=== PATIENT | female | born 1995 | race Caucasian/White ===

== ENCOUNTER 2017-05-22 03:40 | Emergency (ER) | payer MEDICAID ==
[~2017-05-22] VITALS: Ht 152.4 cm; Wt 46.3 kg
[2017-05-22 03:44] VITALS: Ht 152.4 cm; Wt 46.3 kg
[2017-05-22 06:51] VITALS: BP 117/75
== END 2017-05-22 06:51 | disposition home or self-care (01) ==
LOC: ED 03:40
DX: B34.9 Viral infection, unspecified (principal)
CPT/HCPCS: Q0092

== ENCOUNTER 2018-02-06 08:41 | Emergency (ER) | payer BC, MEDICAID ==
[~2018-02-06] VITALS: Ht 154.9 cm; Wt 44.9 kg
[2018-02-06 08:47] VITALS: Ht 154.9 cm; Wt 44.9 kg
[2018-02-06 10:46] LABS: BASOPHIL % 0.6 % (0-2); PLATELET COUNT 232 x10^3mcL (130-400); RED CELL DISTRIBUTION WIDTH 13.5 % (11.5-14.5)
[2018-02-06 12:58] VITALS: BP 104/64
== END 2018-02-06 12:58 | disposition home or self-care (01) ==
LOC: ED 08:41
PROVIDERS: Emergency Medicine
DX: R10.30 Lower abdominal pain, unspecified (principal); N76.0 Acute vaginitis
CPT/HCPCS: 36415; 87491; 87591; J0696

== ENCOUNTER 2019-10-12 22:25 | Emergency (ER) | payer SELFPAY ==
[~2019-10-12] VITALS: Ht 154.9 cm; Wt 49.9 kg
[2019-10-12 22:27] VITALS: Ht 154.9 cm; Wt 49.9 kg
[2019-10-12 23:34] VITALS: BP 112/72
== END 2019-10-12 23:00 | disposition home or self-care (01) ==
LOC: ED 22:25
DX: O26.891 Other specified pregnancy related conditions, first trimester (principal); R50.9 Fever, unspecified; R05 Cough; R06.2 Wheezing; Z20.828 Contact with and (suspected) exposure to other viral communicable diseases; Z3A.10 10 weeks gestation of pregnancy
CPT/HCPCS: U0003-CS

== ENCOUNTER 2019-10-27 15:16 | Emergency (ER) | payer MEDICAID ==
[~2019-10-27] VITALS: Ht 154.9 cm; Wt 49.4 kg
[2019-10-27 15:27] VITALS: BP 112/72; Ht 154.9 cm; Wt 49.4 kg
[2019-10-27 16:57] LABS: BASOPHIL % 0.4 % (0-2); PLATELET COUNT 237 x10^3mcL (130-400); RED CELL DISTRIBUTION WIDTH 13.4 % (11.5-14.5)
== END 2019-10-27 18:00 | disposition home or self-care (01) ==
LOC: ED 15:16
PROVIDERS: Emergency Medicine
DX: O98.812 Other maternal infectious and parasitic diseases complicating pregnancy, second trimester (principal); B37.9 Candidiasis, unspecified
CPT/HCPCS: Q0092